=== PATIENT | female | born 1995 | race Asian ===

== ENCOUNTER 2016-12-21 22:01 | Emergency (ER) | payer SELFPAY ==
[~2016-12-21] VITALS: Ht 157.5 cm; Wt 68.0 kg
[~2016-12-21 22:01] MED LIST: METO10TA81 PO; ONDA8TAB12 PO; RANI150T6 PO; SUCR1ORA5 PO
[2016-12-21 22:21] VITALS: BP 112/59
[2016-12-21 22:25] LABS: BILIRUBIN,URINE NEGATIVE (NEG); GLUCOSE,URINE NEGATIVE (NEG); NITRITE,URINE POSITIVE (NEG); PROTEIN,URINE NEGATIVE (NEG-TRACE)
[2016-12-21] MEDS ORDERED: ONDANSETRON ODT 4 MG TAB.RAPDIS. PO ONE (22:30)
[2016-12-21 22:32] LABS: BACTERIA,URINE MANY /HPF (0-FEW); RBC,URINE OCC /HPF (0-2); SQUAMOUS EPITHELIAL CELL,UR MOD /LPF
[2016-12-21] MEDS ORDERED: PNV1TABL25 PO (23:04)
[2016-12-21] MEDS ORDERED: CEPH500T PO (23:04)
[2016-12-21] MEDS ORDERED: ONDA4TAB10 SL (23:04)
[2016-12-21] MEDS ORDERED: PROM25TA10 PO (23:04)
--- NOTE | 2016-12-21 23:04 | PHYS DOC ---
Past Medical History Past Medical History: No Pertinent History, Other Past Surgical History: Other Additional Past Surgical Histo: PT DID NOT UNDERSTAND. UNKNOWN Alcohol Use: None Drug Use: None Adult General Chief Complaint Chief Complaint: ABDOMINAL PAIN HPI HPI Patient is a 21 year old female who presents complaining of nausea for couple days. Patient states she would like a test. She states she cannot remember the last time she had her cycle. Patient denies any abdominal pain. Denies any vaginal bleeding. 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 Review of Systems Review of Systems Constitutional: Denies fever or chills [] Eyes: Denies change in visual acuity, redness, or eye pain [] HENT: Denies nasal congestion or sore throat [] Respiratory: Denies cough or shortness of breath [] Cardiovascular: No additional information not addressed in HPI [] GI: nausea, vomiting, : Denies dysuria or hematuria [] Musculoskeletal: Denies back pain or joint pain [] Integument: Denies rash or skin lesions [] Neurologic: Denies headache, focal weakness or sensory changes [] Endocrine: Denies polyuria or polydipsia [] Current Medications Current Medications Current Medications Medications (Trade) Dose Ordered Sig/Marichuy Start Time Stop Time Status Last Admin Dose Admin Ondansetron HCl (Zofran Odt) 4 mg 1X ONCE 12/21/16 22:30 12/21/16 22:31 DC 12/21/16 22:40 4 MG Allergies Allergies Allergies Coded Allergies Type Severity Reaction Last Updated Verified No Known Drug Allergies 10/22/15 No Physical Exam Physical Exam Constitutional: Well developed, well nourished, no acute distress, non-toxic appearance. [] HENT: Normocephalic, atraumatic, bilateral external ears normal, oropharynx moist, no oral exudates, nose normal. [] Eyes: PERRLA, EOMI, conjunctiva normal, no discharge. [] Neck: Normal range of motion, no tenderness, supple, no stridor. [] Cardiovascular:Heart rate regular rhythm, no murmur [] Lungs & Thorax: Bilateral breath sounds clear to auscultation [] Abdomen: Bowel sounds normal, soft, no tenderness, no masses, no pulsatile masses. [] Skin: Warm, dry, no erythema, no rash. [] Back: No tenderness, no CVA tenderness. [] Extremities: No tenderness, no cyanosis, no clubbing, ROM intact, no edema. [] Neurologic: Alert and oriented X 3, normal motor function, normal sensory function, no focal deficits noted. [] Psychologic: Affect normal, judgement normal, mood normal. [] Current Patient Data Vital Signs Vital Signs Date Time Temp Pulse Resp B/P (MAP) Pulse Ox O2 Delivery O2 Flow Rate FiO2 12/21/16 22:21 98.5 89 16 100 Room Air 98.5 Lab Values Laboratory Tests Test 12/21/16 21:29 12/21/16 22:12 POC Urine HCG, Qualitative Hcg positive (Negative) Urine Collection Type Unknown Urine Color Yellow Urine Clarity Clear Urine pH 6.0 Urine Specific [place] 1.020 Urine Protein Negative mg/dL (NEG-TRACE) Urine Glucose (UA) Negative mg/dL (NEG) Urine Ketones (Stick) Negative mg/dL (NEG) Urine Blood Negative (NEG) Urine Nitrite Positive (NEG) Urine Bilirubin Negative (NEG) Urine Urobilinogen Dipstick 1.0 mg/dL (0.2 mg/dL) Urine Leukocyte Esterase Moderate (NEG) Urine RBC Occ /HPF (0-2) Urine WBC 11-20 /HPF (0-4) Urine Squamous Epithelial Cells Mod /LPF Urine Bacteria Many /HPF (0-FEW) Urine Mucus Mod /LPF EKG EKG [] Radiology/Procedures Radiology/Procedures [] Course & Med Decision Making Course & Med Decision Making Pertinent Labs and Imaging studies reviewed. (See chart for details) This is a 21-year-old female patient who presents to the ED with nausea and vomiting and requesting a test. Patient has no abdominal pain, vaginal bleeding. Positive urine hCG, urine positive for UTI. Discharged with cephalexin. Discharged with Zofran and promethazine. Instructed to take vitamins. Provided LOSS PREVENTION COORDINATOR for follow-up. Dragon Disclaimer Dragon Disclaimer This electronic medical record was generated, in whole or in part, using a voice recognition dictation system. Departure Departure Impression: Primary Impression: Hyperemesis gravidarum Additional Impressions: UTI (urinary tract infection) Disposition: HOME, SELF-CARE Condition: STABLE Referrals: NO PCP (PCP) BLANCO DOMINGUEZ Jr, MD Follow up in the 1 week Patient Instructions: ABCs of , Diet - Hyperemesis Gravidarum, Hyperemesis Gravidarum, - Urinary Tract Infection Additional Instructions: Your test in the emergency room was positive. We encouraged you to take vitamins. You have a urinary tract infection. Ensure you complete your antibiotics. We sent you home with nausea and vomiting medication. Nausea and vomiting is not unusual in . Take the prescribed medicines as ordered. Follow-up with the provided LOSS PREVENTION COORDINATOR or your own LOSS PREVENTION COORDINATOR in the next 7 days. Scripts Pnv Cmb#95/Ferrous Fumarate/Fa ( TABLET) 1 Each Tablet 1 TAB PO DAILY, #90 TAB 3 Refills Prov: ELENO MCGARRY APRN 12/21/16 Cephalexin (CEPHALEXIN) 500 Mg Tablet 1 TAB PO BID, #14 TAB Prov: ELENO MCGARRY APRN 12/21/16 Ondansetron (ZOFRAN ODT) 4 Mg Tab.rapdis 1 TAB SL Q8HRS, #15 TAB Prov: ELENO MCGARRY APRN 12/21/16 Promethazine Hcl (PROMETHAZINE HCL) 25 Mg Tablet 1 TAB PO PRN Q6HRS, #20 TAB Prov: ELENO MCGARRY APRN 12/21/16 Problem Qualifiers Additional Impressions: Weeks of gestation: unspecified Qualified Codes: Z34.90 - Encounter for supervision of normal , unspecified, unspecified trimester UTI (urinary tract infection) Urinary tract infection type: site unspecified Hematuria presence: without hematuria Qualified Codes: N39.0 - Urinary tract infection, site not specified ELENO MCGARRY APRN Dec 21, 2016 23:04
== END 2016-12-21 23:35 | disposition home or self-care (01) ==
LOC: ER 22:01
DX: Z33.1 Pregnant state, incidental (principal); N39.0 Urinary tract infection, site not specified; R11.2 Nausea with vomiting, unspecified
CPT/HCPCS: 81001; 81025; 87086; 87186; 99284; Q0162

== ENCOUNTER 2017-07-04 22:44 | Observation (INO) | payer SELFPAY ==
[2017-07-04] MEDS ORDERED: IV RINGERS,LACTATED 1000ML 1,000 ML IV ×2 (22:45)
[2017-07-04 23:21] LABS: BILIRUBIN,URINE NEGATIVE (NEG); CLARITY,URINE CLEAR; COLOR,URINE YELLOW; GLUCOSE,URINE NEGATIVE (NEG); NITRITE,URINE NEGATIVE (NEG); PH,URINE 7.5; PROTEIN,URINE NEGATIVE (NEG-TRACE)
[2017-07-04 23:29] LABS: AMPHETAMINE/METHAMPHETAMINE NEG (NEG); BACTERIA,URINE MODERATE /HPF (0-FEW); BARBITURATES NEG (NEG); BENZODIAZEPINES NEG (NEG); CANNABINOIDS NEG (NEG); COCAINE NEG (NEG); ETHANOL, URINE NEG (NEG); METHADONE NEG (NEG); OPIATES NEG (NEG); PHENCYCLIDINE NEG (NEG); RBC,URINE 0 /HPF (0-2); SQUAMOUS EPITHELIAL CELL,UR MANY /LPF
== END 2017-07-05 00:16 | disposition home or self-care (01) ==
LOC: 3 SO LND 22:44
DX: O26.893 Other specified pregnancy related conditions, third trimester (principal); R10.9 Unspecified abdominal pain; Z3A.34 34 weeks gestation of pregnancy
CPT/HCPCS: 80307; 81001; 87086; G0378; G0379

== ENCOUNTER 2017-07-11 00:46 | Observation (INO) | payer SELFPAY ==
[2017-07-11] MEDS: MAGNESIUM CITRATE 296 ML SOLUTION. PO ×2 (02:59)
[2017-07-11 03:50] LABS: BILIRUBIN,URINE NEGATIVE (NEG); CLARITY,URINE CLEAR; COLOR,URINE AMBER; GLUCOSE,URINE NEGATIVE (NEG); NITRITE,URINE NEGATIVE (NEG); PH,URINE 6.5; PROTEIN,URINE NEGATIVE (NEG-TRACE)
[2017-07-11 04:10] LABS: BACTERIA,URINE MANY /HPF (0-FEW); RBC,URINE OCC /HPF (0-2)
[2017-07-11 04:11] LABS: SQUAMOUS EPITHELIAL CELL,UR MOD /LPF
== END 2017-07-11 03:39 | disposition short-term general hospital (02) ==
LOC: 3 SO LND 00:46
DX: O26.893 Other specified pregnancy related conditions, third trimester (principal); R10.9 Unspecified abdominal pain; K59.00 Constipation, unspecified; Z3A.35 35 weeks gestation of pregnancy
CPT/HCPCS: 81001; 87086; G0378; G0379

== ENCOUNTER 2017-07-11 03:30 | Emergency (ER) | payer SELFPAY ==
[2017-07-11] MEDS: GLYCERIN ADULT 1 SUPP.RECT. PR ×2 (04:15)
== END 2017-07-11 04:33 | disposition home or self-care (01) ==
LOC: ER 03:30
DX: K59.00 Constipation, unspecified (principal); K62.89 Other specified diseases of anus and rectum
CPT/HCPCS: 99284

== ENCOUNTER 2017-08-04 22:28 | Observation (INO) | payer SELFPAY ==
[2017-08-04] MEDS ORDERED: IV RINGERS,LACTATED 1000ML 1,000 ML IV (22:46)
[2017-08-05 00:04] LABS: BILIRUBIN,URINE NEGATIVE (NEG); CLARITY,URINE CLEAR; COLOR,URINE YELLOW; GLUCOSE,URINE NEGATIVE (NEG); NITRITE,URINE NEGATIVE (NEG); PH,URINE 7.5; PROTEIN,URINE NEGATIVE (NEG-TRACE)
[2017-08-05 00:09] LABS: BACTERIA,URINE MANY /HPF (0-FEW); RBC,URINE OCC /HPF (0-2)
[2017-08-05 00:10] LABS: SQUAMOUS EPITHELIAL CELL,UR MANY /LPF
[2017-08-05 00:11] LABS: BARBITURATES NEG (NEG); BENZODIAZEPINES NEG (NEG); CANNABINOIDS NEG (NEG); COCAINE NEG (NEG); METHADONE NEG (NEG); OPIATES NEG (NEG); PHENCYCLIDINE NEG (NEG)
[2017-08-05 00:12] LABS: AMPHETAMINE/METHAMPHETAMINE NEG (NEG); ETHANOL, URINE NEG (NEG)
== END 2017-08-05 00:17 | disposition home or self-care (01) ==
LOC: 3 SO LND 22:28
DX: O62.9 Abnormality of forces of labor, unspecified (principal); Z3A.38 38 weeks gestation of pregnancy
CPT/HCPCS: 80307; 81001; 87086; G0378; G0379

== ENCOUNTER 2019-01-05 23:47 | Emergency (ER) | payer SELFPAY ==
[~2019-01-05] VITALS: Ht 157.5 cm; Wt 104.3 kg
[~2019-01-05 23:47] MED LIST changes: +CEPH500T PO; +IBUP-1060 PO; +ONDA4TAB10 SL; +PNV1TABL25 PO; +PROM25TA10 PO; +RANI-376 PO; -RANI150T6 PO
[2019-01-06 00:11] LABS: BILIRUBIN,URINE NEGATIVE (NEG); CLARITY,URINE CLEAR; COLOR,URINE YELLOW; NITRITE,URINE NEGATIVE (NEG); PH,URINE 6.5; PROTEIN,URINE NEGATIVE (NEG-TRACE)
[2019-01-06 00:19] LABS: BACTERIA,URINE MANY /HPF (0-FEW); RBC,URINE OCC /HPF (0-2); SQUAMOUS EPITHELIAL CELL,UR MOD /LPF
[2019-01-06] MEDS ORDERED: ONDA4TAB12 PO (00:27)
--- NOTE | 2019-01-06 00:33 | PHYS DOC ---
Past Medical History Past Medical History: No Pertinent History Past Surgical History: No Surgical History Additional Past Surgical Histo: PT DID NOT UNDERSTAND. UNKNOWN Alcohol Use: None Drug Use: None Adult General Chief Complaint Chief Complaint: ABDOMINAL PAIN HPI HPI Patient is a 23 year old female presents with just not feeling right she's been feeling more tired over the last month she is nauseous especially in the morning she was worried about possibly being no dysuria no abdominal pain no vaginal discharge. Last PERIOD. Was December 07 All other ROS neg unless otherwise noted in HPI Review of Systems Review of Systems SEE ABOVE Allergies Allergies Allergies Coded Allergies Type Severity Reaction Last Updated Verified No Known Drug Allergies 07/11/17 No Physical Exam Physical Exam see above Constitutional: Well developed, well nourished, no acute distress, non-toxic appearance. [] HENT: Normocephalic, atraumatic, bilateral external ears normal, oropharynx moist, no oral exudates, nose normal. [] Eyes: PERRLA, EOMI, conjunctiva normal, no discharge. [] Neck: Normal range of motion, no tenderness, supple, no stridor. [] Pulmonary: Normal respiratory effort no increased work of breathing no obvious chest wall trauma Abdomen: Bowel sounds normal, soft, no tenderness, no masses, no pulsatile masses. [] Pulmonary: Normal respiratory effort no increased work of breathing no obvious chest wall trauma Skin: Warm, dry, no erythema, no rash. [] Back: No tenderness, no CVA tenderness. [] Extremities: No tenderness, no cyanosis, no clubbing, ROM intact, no edema. [] Neurologic: Alert and oriented X 3, normal motor function, normal sensory function, no focal deficits noted. [] Psychologic: Affect normal, judgement normal, mood normal. [] Current Patient Data Vital Signs Vital Signs Date Time Temp Pulse Resp B/P (MAP) Pulse Ox O2 Delivery O2 Flow Rate FiO2 01/06/19 00:05 97.8 97 14 113/68 (83) 95 97.8 Lab Values Laboratory Tests Test 01/06/19 00:05 01/06/19 00:06 Urine Collection Type Unknown Urine Color Yellow Urine Clarity Clear Urine pH 6.5 Urine Specific [place] 1.015 Urine Protein Negative mg/dL (NEG-TRACE) Urine Glucose (UA) Negative mg/dL (NEG) Urine Ketones (Stick) Negative mg/dL (NEG) Urine Blood Negative (NEG) Urine Nitrite Negative (NEG) Urine Bilirubin Negative (NEG) Urine Urobilinogen Dipstick 1.0 mg/dL (0.2 mg/dL) Urine Leukocyte Esterase Negative (NEG) Urine RBC Occ /HPF (0-2) Urine WBC 1-4 /HPF (0-4) Urine Squamous Epithelial Cells Mod /LPF Urine Bacteria Many /HPF (0-FEW) Urine Mucus Marked /LPF POC Urine HCG, Qualitative Hcg positive (Negative) EKG EKG [] Radiology/Procedures Radiology/Procedures [] Course & Med Decision Making Course & Med Decision Making Pertinent Labs and Imaging studies reviewed. (See chart for details) []Patient's urinalysis does show a positive hCG otherwise contaminated sample recommended a follow-up with gynecology within the next 2-3 weeks for care. No abdominal pain no vaginal discharge she really just had some mild nausea probably a ER visit. Given her last menstrual period is unlikely that a beta hCG OR pelvic ultrasound be helpful at this time. Dragon Disclaimer Dragon Disclaimer This electronic medical record was generated, in whole or in part, using a voice recognition dictation system. Departure Departure Impression: Primary Impression: Disposition: 01 HOME, SELF-CARE Condition: STABLE Referrals: NO PCP (PCP) DYLAN MONTOYA MD Patient Instructions: - First Trimester, [id number] Scripts Ondansetron (ONDANSETRON ODT) 4 Mg Tab.rapdis 1 TAB PO PRN Q6-8HRS, #16 TAB Prov: CHANA CARTWRIGHT MD 01/06/19 CHANA CARTWRIGHT MD Jan 06, 2019 00:33
[2019-01-06 01:01] VITALS: BP 113/59
== END 2019-01-06 01:06 | disposition home or self-care (01) ==
LOC: ER 23:47
DX: Z33.1 Pregnant state, incidental (principal); R10.9 Unspecified abdominal pain; R11.0 Nausea
CPT/HCPCS: 81001; 81025; 87086; 99284